=== PATIENT | male | born 1990 | race Caucasian/White ===

== ENCOUNTER 2025-01-26 09:30 | Emergency (ER) | payer SELFPAY ==
[2025-01-26 09:40] VITALS: BP 154/102; PULSE 97; RESP 18; TEMP 36.7; O2SAT 98; BMI 28.3
--- NOTE | 2025-01-26 09:45 | XR_ITS ---
WS: [id number] Portable AP upright chest, 01/26/2025 Clinical Data: dyspnea/cough Comparison: None. Findings: No nodules, masses or effusions are seen. The heart is normal. The pulmonary vascularity is not increased. No pneumonia or pneumothorax is seen. XR/XR chest 1V portable [id number] Impression: Negative chest.
[2025-01-26 10:21] VITALS: PULSE 88; RESP 18; O2SAT 96
[2025-01-26] MEDS: ipratropium-albuterol 3 mL Neb INHALATION (10:24)
[2025-01-26 10:25] VITALS: PULSE 85
[2025-01-26 10:40] LABS: Influenza A NEGATIVE (Negative); Influenza B NEGATIVE (Negative); Respiratory Syncytial Virus Ce NEGATIVE (Negative); SARS-CoV-2 PCR NEGATIVE (Negative)
[2025-01-26 10:59] LABS: Basophils # 0.1 10^3/uL (0.0-0.1); Eosinophils # 0.5 10^3/uL (0.0-0.8); Hematocrit 47.1 % (37-53); Lymphocytes # 2.3 10^3/uL (0.8-4.8); Lymphocytes % 24.7 %; Mean Corpuscular HGB Conc 33.5 g/dL (30-55); Mean Corpuscular Hemoglobin 29.6 pg (27-33); Mean Corpuscular Volume 88.2 fl (82-101); Mean Platelet Volume 9.7 fL (7.4-10.4); Monocytes # 1.2 10^3/uL (0.2-0.9); Monocytes % 12.7 %; Neutrophils # 5.21 10^3/uL (1.8-7.7); Neutrophils % 56.3 %; Nucleated Red Blood Cells % 0 %; Platelet Count 233 10^3/cmm (157-399); Red Blood Count 5.34 10^6/uL (3.85-5.65); White Blood Count 9.26 10^3/uL (3.29-11.43)
[2025-01-26 11:20] LABS: Alanine Aminotransferase 25 U/L (0-41); Albumin Level 3.9 g/dL (3.5-5.2); Alkaline Phosphatase 112 U/L (40-130); Blood Urea Nitrogen 10 mg/dL (6-20); Calcium 8.9 mg/dL (8.5-10.5); Carbon Dioxide 24 mmol/L (22-29); Chloride 103 mmol/L (98-107); Creatinine Clr Calc Pharmacy 140.8893; Globulin 3.2 g/dL (1.3-4.6); Glucose 94 mg/dL (65-115); Osmolality Calculated 283 mOsm/kg (285-295); Slide Review Slide Review Perform; Sodium 137 mmol/L (136-145); Total Bilirubin 0.5 mg/dL (0.15-1.2); Total Protein 7.1 g/dL (6.6-8.7)
[2025-01-26 11:34] LABS: Anion Gap 14.5 (5-19); Aspartate Amino Transferase 28 U/L (0-40); Potassium 4.5 mmol/L (3.5-5.1)
--- NOTE | 2025-01-26 11:35 | ED_ITS ---
HPI - URI/Sore Throat 2 General: Chief Complaint: Upper Respiratory Infection Stated Complaint: coughing up flem Time Seen by Provider: 01/26/25 09:42 History of Present Illness: 34-year-old male presents emergency room was productive cough of yellow sputum for the last 3 days. Subjective fever at home. No vomiting no diarrhea. He has had some myalgias. He has had little streaks of blood in the last the mucus he has been coughing up. Patient is a smoker. Denies any chest pain. Associated symptoms: Deny abdominal pain, chills, chest pain or fever(s) Related Data Previous Rx's ?Medication ?Instructions ?Recorded doxycycline hyclate 100 mg capsule 100 mg PO BID 10 da ys #20 caps 01/26/25 Allergies Allergy/AdvReac Type Severity Reaction Status Date / Time No Known Allergies Allergy Verified 01/26/25 09:42 Review of Systems 2 Const: Denies: fever(s) or chills Card: Denies: chest pain Resp: Denies: dyspnea GI: Denies: abdominal pain : Denies: dysuria, urinary frequency or urinary urgency Musc: Denies: neck pain or back pain Skin/Breast: Denies: rash PFSH ED 2 PFSH: Social History (Updated 01/26/25 @ 11:36 by Handy Campos DO) Smoking and tobacco/nicotine status: current every day tobacco/nicotine user Physical Exam 2 Const: COMMON NORMALS: no acute distress GENERAL APPEARANCE: cooperative and comfortable ORIENTATION/CONSCIOUSNESS: Yes awake, Yes oriented to person, Yes oriented to place and Yes oriented to time HENMT: COMMON NORMALS: normocephalic, atraumatic and hearing grossly normal bilaterally HEAD & SCALP: normocephalic and atraumatic Resp: COMMON NORMALS: normal respiratory effort, No retractions and No use of accessory muscles AUSCULTATION: rhonchi (Right base) and wheezes Cardio: COMMON NORMALS: regular rate, regular rhythm and No murmurs present (Cardio) RATE: regular rate RHYTHM: regular rhythm GI: COMMON NORMALS: Soft to palpation and No hepatosplenomegaly present A USCULTATION: Yes normoactive bowel sounds PALPATION: Yes Soft to palpation, No Tenderness to palpation present (GI), No Guarding due to palpation present (GI) and Yes No hepatosplenomegaly present Extremity: COMMON NORMALS: normal to inspection, capillary refill normal, no clubbing, cyanosis or edema, no calf tenderness and no pedal edema Neuro: SENSORIUM/ORIENTATION: Yes oriented to person, Yes oriented to place and Yes oriented to time Skin: COMMON NORMALS: no rashes or lesions noted GENERAL SKIN EXAM: no rashes or lesions noted Course 2 Vital Signs: Vital signs: Vital Signs Temperature 98.1 F 01/26/25 09:40 Pulse Rate 80 01/26/25 11:50 Respiratory Rate 18 01/26/25 10:21 Blood Pressure 130/77 01/26/25 11:50 Pulse Oximetry 99 01/26/25 11:50 Oxygen Delivery Me thod Room Air 01/26/25 10:21 MDM - URI/Sore Throat Medical Decision Making Chest x-ray looks clear however on auscultation he has very coarse breath sounds at the base of the right lung clinically with his productive cough suspect he does have pneumonia we will start him on doxycycline he has albuterol at home. Return if he has further problems. Reviewed findings with him flu COVID and RSV were negative. Medical Records I reviewed the patient's medical records. Lab Data I reviewed the patient's lab results. 01/26/25 10:50 01/26/25 10:50 Radiology Impressions Chest X-Ray 01/26/25 09:45 Impression: Negative chest. Laboratory Results WBC 9.26 10^3/uL (3.29-11.43) 01/26/25 10:50 RBC 5.34 10^6/uL (3.85-5.65) 01/26/25 10:50 Hgb 15.80 g/dL (11.27-16.99) 01/26/25 10:50 Hct 47.1 % (37-53) 01/26/25 10:50 MCV 88.2 fl (82-101) 01/26/25 10:50 MCH 29.6 pg (27-33) 01/26/25 10:50 MCHC 33.5 g/dL (30-55) 01/26/25 10:50 RDW 13.0 % (12.1-15.1) 01/26/25 10:50 Plt Count 233 10^3/cmm (157-399) 01/26/25 10:50 MPV 9.7 fL (7.4-10.4) 01/26/25 10:50 Neut % (Auto) 56.3 % 01/26/25 10:50 Lymph % (Auto) 24.7 % 01/26/25 10:50 [place] % (Auto) 12.7 % 01/26/25 10:50 Eos % (Auto) 5.0 % 01/26/25 10:50 Baso % (Auto) 1.0 % 01/26/25 10:50 Neut # (Auto) 5.21 10^3/uL (1.8-7.7) 01/26/25 10:50 Lymph # (Auto) 2.3 10^3/uL (0.8-4.8) 01/26/25 10:50 [place] # (Auto) 1.2 10^3/uL (0.2-0.9) H 01/26/25 10:50 Eos # (Auto) 0.5 10^3/uL (0.0-0.8) 01/26/25 10:50 Baso # (Auto) 0.1 10^3/uL (0.0-0.1) 01/26/25 10:50 Nucleated RBC % (auto) 0 % 01/26/25 10:50 Nucleated RBCs # 0.0 /100WBC 01/26/25 10:50 Sodium 137 mmol/L (136-145) 01/26/25 10:50 Potassium 4.5 mmol/L (3.5-5.1) 01/26/25 10:50 Chloride 103 mmol/L (98-107) 01/26/25 10:50 Carbon Dioxide 24 mmol/L (22-29) 01/26/25 10:50 Anion Gap 14.5 (5-19) 01/26/25 10:50 BUN 10 mg/dL (6-20) 01/26/25 10:50 Creatinine 0.9 mg/dL (0.7-1.2) 01/26/25 10:50 GFR Calculation 96.0 mL/min (90-130) 01/26/25 10:50 Glucose 94 mg/dL (65-115) 01/26/25 10:50 Calculated Osmolality 283 mOsm/kg (285-295) L 01/26/25 10:50 Calcium 8.9 mg/dL (8.5-10.5) 01/26/25 10:50 Total Bilirubin 0.5 mg/dL (0.15-1.2) 01/26/25 10:50 AST 28 U/L (0-40) 01/26/25 10:50 ALT 25 U/L (0-41) 01/26/25 10:50 Alkaline Phosphatase 112 U/L (40-130) 01/26/25 10:50 Total Protein 7.1 g/dL (6.6-8.7) 01/26/25 10:50 Albumin 3.9 g/dL (3.5-5.2) 01/26/25 10:50 Globulin 3.2 g/dL (1.3-4.6) 01/26/25 10:50 Influenza A (PCR) Negative (Negative) 01/26/25 09:42 Influenza Type B (PCR) Negative (Negative) 01/26/25 09:42 RSV (PCR) Negative (Negative) 01/26/25 09:42 SARS-CoV-2 (PCR) Negative (Negative) 01/26/25 09:42 All radiology interpretation(s) finalized by discharge Discharge Plan Discharge Patient Disposition: Home Clinical Impression: Pneumonia Condition: Stable Prescriptions: New doxycycline hyclate 100 mg capsule 100 mg PO BID 10 Days Qty: 20 0RF Discharge Orders: Discharge ED (Routine); Ordered 01/26/25 Ordered By: Handy Campos Patient Instructions: Opioid Safety, Pain Management Activity Restrictions/Additional Instructions: Thank you for choosing [facility] for your healthcare needs today. It is very important that you follow up as instructed or that you return to the Emergency Department should you have concerns or if your condition changes or worsens in any way. You were seen in the emergency room for cough congestion and fever. Laboratory test normal chest x-ray did not show any acute infiltrates however on your exam you do have very coarse breath sounds at the right base of your lung. Will start you on a doxycycline 100 mg twice a day for 10 days. If not improving recheck Print Language: Yemeni Coding Level of Care Code ED Pharmaceutical Process Engineer for Luis Stinson
[2025-01-26 11:40] VITALS: BP 130/77; PULSE 93; O2SAT 98
--- NOTE | 2025-01-26 11:43 | ECG_ITS ---
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 Measurements Intervals [place] Rate: 83 P: 69 [place]: 147 QRS: 43 QRSD: 89 T: 55 QT: 339 QTc: 399 Interpretive Statements SINUS RHYTHM No previous ECG available for comparison Electronically Signed On 01-28-2025 19:12:01 CDT by Fernando King M.D. [id number] [id number]
[2025-01-26 11:50] VITALS: BP 130/77; PULSE 80; O2SAT 99
== END 2025-01-26 12:00 | disposition home or self-care (01) ==
PROVIDERS: Emergency Provider Family Medicine
DX: J18.9 Pneumonia, unspecified organism (principal); Z11.52 Encounter for screening for COVID-19; Z72.0 Tobacco use
CPT/HCPCS: 71045; 80053; 85025; 87637; 93005; 94640; 99285

== ENCOUNTER 2025-02-17 01:23 | Emergency (ER) | payer SELFPAY ==
[2025-02-17 01:24] VITALS: BP 162/122; PULSE 73; RESP 18; TEMP 37; O2SAT 96; BMI 29.7
--- NOTE | 2025-02-17 01:38 | ECG_ITS ---
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 Measurements Intervals [place] Rate: 87 P: 86 [place]: 142 QRS: 56 QRSD: 96 T: 87 QT: 329 QTc: 397 Interpretive Statements SINUS RHYTHM Compared to ECG 01/26/2025 11:43:45 No significant changes Electronically Signed On 02-17-2025 17:34:28 CDT by Fernando King M.D. [id number]
--- NOTE | 2025-02-17 01:38 | XRR_ITS ---
PROCEDURE INFORMATION: Exam: XR Chest Exam date and time: 02/17/2025 1:44 AM Age: 34 years old Clinical indication: Shortness of breath TECHNIQUE: Imaging protocol: Radiologic exam of the chest. Views: 1 view. COMPARISON: CR XR chest 1V portable [id number] 01/26/2025 9:58 AM FINDINGS: Lungs: Unremarkable. No consolidation. Pleural spaces: Unremarkable. No pleural effusion. No pneumothorax. Heart/Mediastinum: Unremarkable. No cardiomegaly. Bones/joints: Unremarkable. XR/XR chest 1V portable [id number] IMPRESSION: No acute findings.
--- NOTE | 2025-02-17 01:42 | W.ED.CHESTPA ---
HPI - Chest Pain General: Chief Complaint: Chest Pain Stated Complaint: cp, light headed Time Seen by Provider: 02/17/25 01:37 History of Present Illness: 34-year-old man with a history of hypertension who presents emergency room with hypertension. He says has been having some chest discomfort and some dizziness. He says he feels fine right now. [facility]. He says he is supposed to be taking blood pressure medication. Related Data Previous Rx's ?Medication ?Instructions ?Recorded lisinopril 20 mg tablet 20 mg PO DAILY #30 tabs 02/17/25 Allergies Allergy/AdvReac Type Severity Reaction Status Date / Time No Known Allergies Allergy Verified 02/17/25 01:28 Review of Systems Narrative: Constitutional symptoms: Negative except as documented in HPI. Skin symptoms: Negative except as documented in HPI. Eye symptoms: Negative except as documented in HPI. ENMT symptoms: Negative except as documented in HPI. Respiratory symptoms: Negative except as documented in HPI. Cardiovascular symptoms: Negative except as documented in HPI. Gastrointestinal symptoms: Negative except as documented in HPI. Genitourinary symptoms: Negative except as documented in HPI. Musculoskeletal symptoms: Negative except as documented in HPI. Neurologic symptoms: Negative except as documented in HPI. Psychiatric symptoms: Negative except as documented in HPI. Endocrine symptoms: Negative except as documented in HPI. PFSH ED PFSH: Social History (Updated 01/26/25 @ 11:36 by Handy Campos DO) Smoking and tobacco/nicotine status: current every day tobacco/nicotine user Physical Exam Narrative: EXAM NARRATIVE: General: Alert, no acute distress. Skin: Warm, dry. Head: Normocephalic, atraumatic. Neck: Supple, trachea midline. Eye: Extraocular movements are intact. Ears, nose, mouth and throat: mucosa moist. Cardiovascular: Regular, Normal peripheral perfusion. Respiratory: Lungs are clear to auscultation, respirations are non-labored, breath sounds are equal, Symmetrical chest wall expansion. Gastrointestinal: Soft, Nontender, Non distended Musculoskeletal: Normal ROM, no deformity. Neurological: Alert and oriented, No focal neurological deficit observed. Psychiatric: Cooperative, appropriate mood & affect. Course Vital Signs: Vital signs: Vital Signs Temperature 98.6 F 02/17/25 01:24 Pulse Rate 103 H 02/17/25 03:48 Respiratory Rate 18 02/17/25 01:24 Blood Pressure 159/95 02/17/25 03:02 Pulse Oximetry 96 02/17/25 03:48 Oxygen Delivery Me thod Room Air 02/17/25 03:48 MDM - Chest Pain Medical Decision Making Differential diagnosis for patient with chest pain includes but is not limited to and based on the above HPI, review of systems and physical exam: Pneumonia. unstable angina. angina. Acute coronary syndrome / [place]. Pulmonary embolism. Costochondritis / musculoskeletal. Pleurisy. Pericarditis. Esophageal spasm. Pancreatis. Cholecystitis. Orders placed to evaluate differential diagnosis based on the above differential, HPI and physical exam EKG: Time 1:34 AM. Rate 87. Normal sinus rhythm, No ST-T changes, no ectopy, normal NH & QRS intervals, This was reviewed and interpreted by myself the ER physician at 1:40 AM Chest x-ray: No acute process. No infiltrate. No pneumothorax. This was reviewed and interpreted by myself the emergency room physician. I also reviewed the radiology report. Lab Review: Laboratory results were reviewed and interpreted by myself the emergency room physician. No leukocytosis. No anemia. No renal failure. Troponin is negative. I reviewed the patient's medical record. Reexamination: Patient has remained chest pain-free. Assessment and plan: Hypertension Noncardiac chest pain ? Lisinopril and clonidine in the emergency room. - Discharged home - Discussed plan with patient. Answered any questions. - Evaluation and treatment of this problem were appropriate in the emergency setting. Lab Data 02/17/25 03:19 02/17/25 03:19 Radiology Impressions Chest X-Ray 02/17/25 01:38 IMPRESSION: No acute findings. Laboratory Results WBC 11.75 10^3/uL (3.29-11.43) H 02/17/25 03:19 Corrected WBC Cancelled 02/17/25 02:51 RBC 5.59 10^6/uL (3.85-5.65) 02/17/25 03:19 Hgb 16.20 g/dL (11.27-16.99) 02/17/25 03:19 Hct 49.9 % (37-53) 02/17/25 03:19 MCV 89.3 fl (82-101) 02/17/25 03:19 MCH 29.0 pg (27-33) 02/17/25 03:19 MCHC 32.5 g/dL (30-55) 02/17/25 03:19 RDW 12.2 % (12.1-15.1) 02/17/25 03:19 Plt Count 310 10^3/cmm (157-399) 02/17/25 03:19 MPV 9.5 fL (7.4-10.4) 02/17/25 03:19 Gran % Cancelled 02/17/25 02:51 Neut % (Auto) 66.7 % 02/17/25 03:19 Lymph % (Auto) 21.5 % 02/17/25 03:19 [place] % (Auto) 8.2 % 02/17/25 03:19 Eos % (Auto) 2.3 % 02/17/25 03:19 Baso % (Auto) 1.0 % 02/17/25 03:19 Neut # (Auto) 7.83 10^3/uL (1.8-7.7) H 02/17/25 03:19 Lymph # (Auto) 2.5 10^3/uL (0.8-4.8) 02/17/25 03:19 [place] # (Auto) 1.0 10^3/uL (0.2-0.9) H 02/17/25 03:19 Eos # (Auto) 0.3 10^3/uL (0.0-0.8) 02/17/25 03:19 Baso # (Auto) 0.1 10^3/uL (0.0-0.1) 02/17/25 03:19 Absolute Gran (auto) Cancelled 02/17/25 02:51 Nucleated RBC % (auto) 0 % 02/17/25 03:19 Nucleated RBCs # 0.0 /100WBC 02/17/25 03:19 Sodium 139 mmol/L (136-145) 02/17/25 03:19 Potassium Cancelled 02/17/25 02:51 Chloride 103 mmol/L (98-107) 02/17/25 03:19 Carbon Dioxide 24 mmol/L (22-29) 02/17/25 03:19 Anion Gap Cancelled 02/17/25 02:51 BUN 10 mg/dL (6-20) 02/17/25 03:19 Creatinine 1.0 mg/dL (0.7-1.2) 02/17/25 03:19 GFR Calculation Cancelled 02/17/25 02:51 Glucose 85 mg/dL (65-115) 02/17/25 03:19 Calculated Osmolality 286 mOsm/kg (285-295) 02/17/25 03:19 Calcium 9.2 mg/dL (8.5-10.5) 02/17/25 03:19 Total Bilirubin 0.2 mg/dL (0.15-1.2) 02/17/25 03:19 AST 17 U/L (0-40) 02/17/25 03:19 ALT 20 U/L (0-41) 02/17/25 03:19 Alkaline Phosphatase 84 U/L (40-130) 02/17/25 03:19 Troponin T Baseline < 6 ng/L (0-15) 02/17/25 03:19 NT-Pro-B Natriuret Pep < 36 pg/mL (0-125) 02/17/25 03:19 Total Protein 6.9 g/dL (6.6-8.7) 02/17/25 03:19 Albumin 4.4 g/dL (3.5-5.2) 02/17/25 03:19 Globulin 2.5 g/dL (1.3-4.6) 02/17/25 03:19 All radiology interpretation(s) finalized by discharge Discharge Plan Discharge Patient Disposition: Home Clinical Impression: Hypertension, Non-cardiac chest pain Condition: Stable Prescriptions: New lisinopril 20 mg tablet 20 mg PO DAILY Qty: 30 1RF Discharge Orders: Discharge ED (Routine); Ordered 02/17/25 Ordered By: Jackelin Guido Discharge Diet: Usual diet Discharge Activity: Increase activity as tolerated Patient Instructions: Hypertension (ED), Noncardiac Chest Pain (ED), Opioid Safety, Pain Management Activity Restrictions/Additional Instructions: Thank you for choosing [facility] for your healthcare needs today. Please realize this is an emergency room and that we are providing you with a medical screening exam and this may not be complete and all inclusive of all the testing and or work up that you may need to determine your ailment or severity of your illness. You have been screened and evaluated and felt safe for discharge. Health conditions do change or evolve sometimes and as such it is important that you follow up with your Primary Doctor to be re checked, 3-5 days is a general good time frame for follow up. You are always welcome to return to the ED for re assessment if your symptoms are worsening or you have new concerns Print Language: Wolof Coding Level of Care Code ED Salesperson [employer]ans for Luis Stinson
[2025-02-17 02:03] VITALS: BP 162/122
[2025-02-17] MEDS: lisinopril 20 mg Tablet PO (02:03)
[2025-02-17] MEDS: cloNIDine 0.1 mg Tablet PO (02:03)
[2025-02-17 02:06] VITALS: BP 197/118; PULSE 89; O2SAT 99
[2025-02-17 03:02] VITALS: BP 159/95; PULSE 91; O2SAT 99
--- NOTE | 2025-02-17 03:22 | ECG_ITS ---
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
[2025-02-17 03:24] LABS: Basophils # 0.1 10^3/uL (0.0-0.1); Eosinophils # 0.3 10^3/uL (0.0-0.8); Eosinophils % 2.3 %; Hematocrit 49.9 % (37-53); Lymphocytes # 2.5 10^3/uL (0.8-4.8); Lymphocytes % 21.5 %; Mean Corpuscular HGB Conc 32.5 g/dL (30-55); Mean Corpuscular Volume 89.3 fl (82-101); Mean Platelet Volume 9.5 fL (7.4-10.4); Monocytes % 8.2 %; Neutrophils # 7.83 10^3/uL (1.8-7.7); Neutrophils % 66.7 %; Nucleated Red Blood Cells % 0 %; Platelet Count 310 10^3/cmm (157-399); Red Blood Count 5.59 10^6/uL (3.85-5.65); Red Cell Distribution Width 12.2 % (12.1-15.1); White Blood Count 11.75 10^3/uL (3.29-11.43)
[2025-02-17 03:42] LABS: Troponin(5th) Baseline < 6 ng/L (0-15)
[2025-02-17 03:48] VITALS: PULSE 103; O2SAT 96
[2025-02-17 04:04] LABS: Alanine Aminotransferase 20 U/L (0-41); Albumin Level 4.4 g/dL (3.5-5.2); Alkaline Phosphatase 84 U/L (40-130); Aspartate Amino Transferase 17 U/L (0-40); Blood Urea Nitrogen 10 mg/dL (6-20); Calcium 9.2 mg/dL (8.5-10.5); Carbon Dioxide 24 mmol/L (22-29); Chloride 103 mmol/L (98-107); Creatinine Clr Calc Pharmacy 129.4463; Globulin 2.5 g/dL (1.3-4.6); Glucose 85 mg/dL (65-115); NT Pro B Type Natriuretic Pept < 36 pg/mL (0-125); Osmolality Calculated 286 mOsm/kg (285-295); Sodium 139 mmol/L (136-145); Total Bilirubin 0.2 mg/dL (0.15-1.2); Total Protein 6.9 g/dL (6.6-8.7)
[2025-02-17 04:07] LABS: Anion Gap 16.5 (5-19); Potassium 4.5 mmol/L (3.5-5.1)
[2025-02-17 04:16] VITALS: BP 135/75; PULSE 91; O2SAT 97
== END 2025-02-17 04:10 | disposition home or self-care (01) ==
PROVIDERS: Emergency Provider Emergency Medicine
DX: I10 Essential (primary) hypertension (principal); R07.89 Other chest pain; Z72.0 Tobacco use
CPT/HCPCS: 36415; 71045; 80053; 83880; 84484; 85025; 93005; 99285; J9999

== ENCOUNTER 2025-05-10 08:16 | Outpatient (CLI) | payer MEDICAID, SELFPAY ==
--- NOTE | 2025-05-10 06:30 | US_ITS ---
WS: [id number] Complete ABDOMINAL ULTRASOUND HISTORY: R11.0 - Nausea COMPARISON: None available. Liver: 14.0 cm in length. Normal size liver and echogenicity. No bile duct dilatation or mass. Portal Vein: Normal hepatopetal flow with monophasic waveform. Gallbladder: Normally distended gallbladder with no stones or wall thickening. CBD: 0.2 cm Pancreas: Limited visualization of the pancreas. Right kidney: 10.2 cm x 4.1 x 4.4 cm. Cortex:1.2 cm. Normal size and echogenicity. No hydronephrosis or mass. Left kidney: 10.6 cm x 5.0 cm x 4.8 cm. Cortex: 1.1 cm. Normal size kidney. Central parapelvic cyst measures 1.1 x 1.2 x 1.2 cm. No renal obstruction. Spleen: 10.2 cm. Normal size and echogenicity. Aorta and IVC: Unremarkable abdominal aorta and IVC. US/US abdomen complete* [id number] Impression: 1. Normal gallbladder. 2. Normal liver. 3. Nonvisualization of the pancreas. 4. No renal obstruction. 5. Parapelvic cyst LEFT kidney, 1.2 cm.
== END 2025-05-10 08:17 | disposition home or self-care (01) ==
PROVIDERS: PCP Clinical Nurse Specialist Adult Health; Visit Provider Clinical Nurse Specialist Adult Health
DX: N28.1 Cyst of kidney, acquired (principal); R11.0 Nausea; K21.9 Gastro-esophageal reflux disease without esophagitis; R10.9 Unspecified abdominal pain
CPT/HCPCS: 76700

== ENCOUNTER 2025-09-07 12:13 | Emergency (ER) | payer SELFPAY ==
[2025-09-07 12:38] VITALS: BP 135/80; PULSE 74; TEMP 36.7; O2SAT 99
--- NOTE | 2025-09-07 12:42 | ECG_ITS ---
[facility] Test Date: 2025-09-07 Pat Name: Frandy Cisneros Department: Room: Gender: Male Clinical Physician Assistant: : 1990 Requested By: Lois Paige Order Number: [id number] Queenie MD: Jolynn White M.D. Measurements Intervals [place] Rate: 74 P: 58 [place]: 152 QRS: 34 QRSD: 91 T: 61 QT: 346 QTc: 385 Interpretive Statements SINUS RHYTHM INTERPRETATION BASED ON A DEFAULT AGE OF 40 YEARS Compared to ECG 02/17/2025 03:22:38 No significant changes Electronically Signed On 09-07-2025 16:52:39 CDT by Jolynn White M.D. [id number]
--- NOTE | 2025-09-07 13:36 | W.ED.GENADLT ---
HPI - General Adult General: Chief complaint: General Medical Stated complaint: BP high Time Seen by Provider: 09/07/25 13:28 Source: patient and EMS Mode of arrival: EMS Limitations: no limitations History of Present Illness: 35-year-old male is here from [facility] he states that he does have a history of high blood pressure states he has been under a lot of stress and got anxious today and his blood pressure had spiked [facility] and called EMS. He states he had no chest pain no shortness of breath his blood pressure is normalized he states he feels back to his baseline has no complaints currently. Related Data Previous Rx's ?Medication ?Instructions ?Recorded melatonin 3 mg capsule 3 mg PO .every 9PM #30 caps 03/03/25 Allergies Allergy/AdvReac Type Severity Reaction Status Date / Time No Known Allergies Allergy Verified 09/07/25 12:46 [facility] ED PFSH: Medical History Abdominal pain GERD (gastroesophageal reflux disease) History of drug use Essential hypertension Insomnia Surgical History No pertinent past surgical history Social History Smoking and tobacco/nicotine status: current every day tobacco/nicotine user Quit status (tobacco/nicotine): has quit using Former quit date comment: 2024 Alcohol intake: former Substance/Drug Use: former Household members: significant other Physical Exam Const: COMMON NORMALS: no acute distress, patient oriented x3 and healthy appearing HENMT: COMMON NORMALS: normocephalic and atraumatic HEAD & SCALP: normocephalic and atraumatic Eye: COMMON NORMALS: Equal, round and reactive pupils present and EOMs intact bilaterally PUPIL: Yes Equal, round and reactive pupils present Neck/C-Spine: COMMON NORMALS: full ROM and supple Chest: COMMONS NORMALS: normal inspection of the chest and normal palpation of entire chest wall Resp: COMMON NORMALS: normal respiratory effort, No retractions, No use of accessory muscles and clear to auscultation bilaterally AUSCULTATION: clear to auscultation bilaterally Cardio: COMMON NORMALS: regular rate, regular rhythm and No murmurs present (Cardio) RATE: regular rate RHYTHM: regular rhythm GI: COMMON NORMALS: Normal to inspection, nondistended, normoactive bowel sounds present, Soft to palpation, non-tender and no masses PALPATION: Yes Soft to palpation Extremity: COMMON NORMALS: normal to inspection and full ROM Neuro: COMMON NORMALS: patient oriented x3, moves all extremities and no focal motor deficits Psych: COMMON NORMALS: mental status grossly normal, Normal thought process present and cooperative THOUGHT PROCESS: Normal thought process present Skin: COMMON NORMALS: no rashes or lesions noted and no wounds GENERAL SKIN EXAM: no rashes or lesions noted Course Vital Signs: Vital signs: Vital Signs Temperature 98.1 F 09/07/25 12:38 Pulse Rate 74 09/07/25 12:38 Blood Pressure 135/80 09/07/25 12:38 Pulse Oximetry 99 09/07/25 12:38 Oxygen Delivery Me thod Room Air 09/07/25 12:38 MDM - General Adult Medical Decision Making Patient presents here with concern of hypertension he has been normotensive here and he has no complaints here he is had no chest pain no headache EKG here showed normal sinus rhythm heart rate [address] elevation QRS 91 QTc 374. Blood pressure here currently 135/80 he is stable for discharge back to [facility] [place]. Medical Records I reviewed the patient's medical records. Lab Data I reviewed the patient's lab results. No radiology studies performed this visit EKG Data EKG 1: I personally reviewed and interpreted this EKG as follows: EKG interpretation date: 09/07/25 EKG interpretation time: 12:42 Interpretation: nsr hr [address] elevation qrs 91 qtc 374 Discharge Plan Discharge Patient Disposition: Home Clinical Impression: Hypertension Condition: Stable Prescriptions: No Action melatonin 3 mg capsule 3 mg PO .every 9PM Qty: 30 0RF Discharge Orders: Discharge ED (Routine); Ordered 09/07/25 Ordered By: Lois Paige Referrals: Gil Albrecht NP [Primary Care Provider, Family Practice] - 4-7 days Discharge Diet: Advance as tolerated Discharge Activity: Resume usual activity Patient Instructions: Hypertension (ED) Print Language: Wolof Coding Level of Care Code ED International Logistics Manager for Chg Milad
--- NOTE | 2025-09-07 13:40 | PC.PHAR ---
Pt has been at [facility] for 2 days. Med list not confirmed prior to discharge
== END 2025-09-07 14:07 | disposition home or self-care (01) ==
PROVIDERS: Emergency Provider Emergency Medicine; PCP Clinical Nurse Specialist Adult Health
DX: I10 Essential (primary) hypertension (principal); Z72.0 Tobacco use
CPT/HCPCS: 93005; 99283

== ENCOUNTER 2025-11-13 21:47 | Emergency (ER) | payer SELFPAY ==
--- NOTE | 2025-11-13 21:55 | ECG_ITS ---
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
[2025-11-13 21:59] VITALS: BP 178/122; PULSE 108; RESP 18; TEMP 36.8; O2SAT 97; BMI 33.0
--- NOTE | 2025-11-13 23:10 | XRR_ITS ---
PROCEDURE INFORMATION: Exam: XR Chest Exam date and time: 11/14/2025 12:30 AM Age: 35 years old Clinical indication: Pain; Chest pressure; Additional info: Chest pain TECHNIQUE: Imaging protocol: Radiologic exam of the chest. Views: 1 view. COMPARISON: CR XR chest 1V portable [id number] 02/17/2025 1:44 AM FINDINGS: Lungs: Pulmonary hypoinflation without consolidation. Pleural spaces: No substantial pleural effusion or pneumothorax. Heart/Mediastinum: Unremarkable. No cardiomegaly. Bones/joints: Unremarkable. XR/XR chest 1V portable [id number] IMPRESSION: Pulmonary hypoinflation without acute findings.
[2025-11-14] VITALS (17 sets, daily range): BP systolic 134–169; BP diastolic 101–117; PULSE 79–108; RESP 14–23; O2SAT 96–100
--- NOTE | 2025-11-14 00:10 | ECG_ITS ---
[facility] Test Date: 2025-11-14 Pat Name: Frandy Cisneros Department: Room: Gender: Male [employer]: : 1990 Requested By: Kylah Self Order Number: [id number] Queenie MD: VICKIE WALTERS Measurements Intervals [place] Rate: 91 P: 71 SC: 154 QRS: 20 QRSD: 110 T: 47 QT: 358 QTc: 443 Interpretive Statements SINUS RHYTHM Compared to ECG 11/13/2025 21:55:36 Sinus tachycardia no longer present Electronically Signed On 11-17-2025 18:55:28 SHAKER REPAIRER by VICKIE WALTERS [email or web address]villeS[id number]
[2025-11-14 00:37] LABS: Hematocrit 51.2 % (37-53); Hemoglobin 16.40 g/dL (11.27-16.99); Mean Corpuscular HGB Conc 32.0 g/dL (30-55); Mean Corpuscular Hemoglobin 29.1 pg (27-33); Mean Corpuscular Volume 90.8 fl (82-101); Nucleated Red Blood Cells % 0 %; Platelet Count 314 10^3/cmm (157-399); Red Blood Count 5.64 10^6/uL (3.85-5.65); Troponin(5th) Baseline 8 ng/L (0-15); White Blood Count 8.86 10^3/uL (3.29-11.43)
[2025-11-14 00:44] LABS: Alanine Aminotransferase 88 U/L (0-41); Albumin Level 4.7 g/dL (3.5-5.2); Alkaline Phosphatase 116 U/L (40-130); Anion Gap 17.9 (5-19); Aspartate Amino Transferase 41 U/L (0-40); Blood Urea Nitrogen 14 mg/dL (6-20); Calcium 9.9 mg/dL (8.5-10.5); Carbon Dioxide 24 mmol/L (22-29); Chloride 102 mmol/L (98-107); Globulin 2.6 g/dL (1.3-4.6); Glucose 107 mg/dL (65-115); Osmolality Calculated 289 mOsm/kg (285-295); Potassium 4.9 mmol/L (3.5-5.1); Sodium 139 mmol/L (136-145); Total Protein 7.3 g/dL (6.6-8.7)
[2025-11-14 02:27] LABS: Glucose Urine UA Negative (Normal); Nitrate Urine Negative (Negative); Specific Gravity, Urine 1.016 (1.005-1.030)
[2025-11-14 02:29] LABS: Add Urine Microscopic? YES
[2025-11-14 03:02] LABS: Lipase 34 U/L (13-60); NT Pro B Type Natriuretic Pept < 36 pg/mL (0-125)
--- NOTE | 2025-11-14 03:05 | W.ED.CHESTPA ---
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 Patient states that any stress triggers high blood pressure and chest pain. Patient states that today he awoke, felt warm sensation in his chest, measured his blood pressure which he noted to be elevated and then started experiencing chest pain which is dull, squeezing and pressure-like. Patient states he was diaphoretic. Chest pain is not clearly exertional and does not radiate. He does not have any cardiac history. He is supposed to be taking amlodipine for high blood pressure but states that he has discontinued it, states that it causes chest pain. Patient states that his blood pressure has been running 150-180 systolic at home. Patient denies double vision, loss of vision, focal numbness, focal weakness, difficulty with speech, swallowing, coordination or ambulation. Related Data Previous Rx's ?Medication ?Instructions ?Recorded melatonin 3 mg capsule 3 mg PO .every 9PM #30 caps 03/03/25 losartan 50 mg-hydrochlorothiazide 1 tab PO DAILY #30 tabs 11/14/25 12.5 mg tablet Allergies Allergy/AdvReac Type Severity Reaction Status Date / Time No Known Allergies Allergy Verified 09/07/25 12:46 [facility] ED PFS: Medical History (Updated 11/14/25 @ 04:30 by Deirdre Sargent MD) Abdominal pain GERD (gastroesophageal reflux disease) History of drug use Essential hypertension Insomnia Surgical History No pertinent past surgical history Social History Smoking and tobacco/nicotine status: current every day tobacco/nicotine user Quit status (tobacco/nicotine): has quit using Former quit date comment: 2024 Alcohol intake: former Substance/Drug Use: former Household members: significant other Physical Exam Narrative: EXAM NARRATIVE: Vital signs were reviewed. Patient is alert and oriented. Patient is breathing comfortably, no increased WOB or accessory muscle use. SpO2 is above 95% on RA. Patient has clear lungs b/l, no rhonchi, wheezing or crackles. No hypotension. Mild tachycardia. Abdomen is soft, nondistended and nontender. Patient is moving all extremities, no deformity or gross injury. No lower extremity edema or asymmetry. Patient appears anxious. Course Vital Signs: Vital signs: Vital Signs Temperature 98.3 F 11/13/25 21:59 Pulse Rate 97 11/14/25 03:45 Respiratory Rate 19 H 11/14/25 03:15 Blood Pressure 156/111 11/14/25 03:45 Pulse Oximetry 97 11/14/25 03:45 MDM - Chest Pain Medical Decision Making 35yo M w/cc of HTN, chest pressure worsened by stress, anxiety, nonexertional, nonradiating. He has recently discontinued drug use. Differential diagnosis includes, but is not limited to, ACS, myocarditis, pericarditis, endocarditis, pneumonia, viral upper respiratory infection, PE, GERD, asymptomatic hypertension, hypertensive emergency, panic attack, anxiety other. On initial exam, patient is hemodynamically stable nontoxic appearing. EKG was personally reviewed and interpreted and shows no STEMI. Patient was evaluate CBC, CMP, troponin, D-dimer, BNP, EKG, chest x-ray, UA and urine drug screen. Patient has a normal white blood cell count, no electrolyte abnormalities, only mild elevation in AST and ALT but I do not feel that this is clinically significant, normal lipase, no urinary tract infection, no blood in urine, drug screen is negative. Patient has a normal troponin, negative delta, has a normal BNP and no evidence of heart failure, patient has a normal D-dimer which significantly lowers my concern for DVT. 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 He states that Wellbutrin has worked for his depression but he has significant anxiety he deals with. I feel that this is a component that contributes to his chest pain. I will start him on losartan for blood pressure control, recommend outpatient cardiology workup if patient continues to have chest pain. At this time, I feel that he is appropriate for outpatient management, he has a heart score of 2. Patient was counseled on supportive care at home, given return precautions and discharged in stable condition with recommendation for outpatient follow-up with primary care nurse or doctor. Lab Data 12/28/25 00:14 11/13/25 00:14 Radiology Impressions Chest X-Ray 11/13/25 23:10 IMPRESSION: Pulmonary hypoinflation without acute findings. Laboratory Results WBC 8.86 10^3/uL (3.29-11.43) 11/13/25 00:14 RBC 5.64 10^6/uL (3.85-5.65) 11/13/25 00:14 Hgb 16.40 g/dL (11.27-16.99) 11/13/25 00:14 Hct 51.2 % (37-53) 11/13/25 00:14 MCV 90.8 fl (82-101) 11/13/25 00:14 MCH 29.1 pg (27-33) 11/13/25 00:14 MCHC 32.0 g/dL (30-55) 11/13/25 00:14 RDW 12.4 % (12.1-15.1) 11/13/25 00:14 Plt Count 314 10^3/cmm (157-399) 11/13/25 00:14 MPV 9.1 fL (7.4-10.4) 11/13/25 00:14 Neut % (Auto) 72.5 % 11/13/25 00:14 Lymph % (Auto) 16.7 % 11/13/25 00:14 [place] % (Auto) 7.9 % 11/13/25 00:14 Eos % (Auto) 1.4 % 11/13/25 00:14 Baso % (Auto) 1.0 % 11/13/25 00:14 Neut # (Auto) 6.43 10^3/uL (1.8-7.7) 11/13/25 00:14 Lymph # (Auto) 1.5 10^3/uL (0.8-4.8) 11/13/25 00:14 [place] # (Auto) 0.7 10^3/uL (0.2-0.9) 11/13/25 00:14 Eos # (Auto) 0.1 10^3/uL (0.0-0.8) 11/13/25 00:14 Baso # (Auto) 0.1 10^3/uL (0.0-0.1) 11/13/25 00:14 Nucleated RBC % (auto) 0 % 11/13/25 00:14 Nucleated RBCs # 0.0 /100WBC 11/13/25 00:14 D-Dimer <= 0.27 ug/mLFEU (0-0.59) 11/14/25 00:14 Sodium 139 mmol/L (136-145) 11/13/25 00:14 Potassium 4.9 mmol/L (3.5-5.1) 11/13/25 00:14 Chloride 102 mmol/L (98-107) 11/13/25 00:14 Carbon Dioxide 24 mmol/L (22-29) 11/13/25 00:14 Anion Gap 17.9 (5-19) 11/13/25 00:14 BUN 14 mg/dL (6-20) 11/13/25 00:14 Creatinine 1.0 mg/dL (0.7-1.2) 11/13/25 00:14 GFR Calculation 84.5 mL/min (90-130) L 11/13/25 00:14 Glucose 107 mg/dL (65-115) 11/13/25 00:14 Calculated Osmolality 289 mOsm/kg (285-295) 11/13/25 00:14 Calcium 9.9 mg/dL (8.5-10.5) 11/13/25 00:14 Total Bilirubin 0.2 mg/dL (0.15-1.2) 11/13/25 00:14 AST 41 U/L (0-40) H 11/13/25 00:14 ALT 88 U/L (0-41) H 11/13/25 00:14 Alkaline Phosphatase 116 U/L (40-130) 11/13/25 00:14 Troponin T Baseline 8 ng/L (0-15) 11/13/25 00:14 Troponin T 60 Minute 8.55 ng/L (0-15) 11/14/25 01:04 Delta Troponin T 0.55 ABS# (0-10) 11/14/25 01:04 NT-Pro-B Natriuret Pep < 36 pg/mL (0-125) 11/14/25 00:14 Total Protein 7.3 g/dL (6.6-8.7) 11/13/25 00:14 Albumin 4.7 g/dL (3.5-5.2) 11/13/25 00:14 Globulin 2.6 g/dL (1.3-4.6) 11/13/25 00:14 Lipase 34 U/L (13-60) 11/14/25 00:14 Urine Color Yellow (Yellow) 11/14/25 02:18 Urine Appearance Clear (CLEAR) 11/14/25 02:18 Urine pH 8.0 (5-7) A 11/14/25 02:18 Ur Specific [place] 1.016 (1.005-1.030) 11/14/25 02:18 Urine Protein Negative (Negative) 11/14/25 02:18 Urine Glucose (UA) Negative (Normal) 11/14/25 02:18 Urine Ketones Negative (Negative) 11/14/25 02:18 Urine Blood Negative (Negative) 11/14/25 02:18 Urine Nitrate Negative (Negative) 11/14/25 02:18 Urine Bilirubin Negative (Negative) 11/14/25 02:18 Urine Urobilinogen 0.2 mg/dL (Negative) 11/14/25 02:18 Ur Leukocyte Esterase Negative (Negative) 11/14/25 02:18 Urine RBC 0-2 /hpf (0-2) 11/14/25 02:18 Urine WBC 0-5 /hpf (0-5) 11/14/25 02:18 Ur Squamous Epith Cells 0-5 /hpf (0-5) 11/14/25 02:18 Amorphous Sediment Not Reportable 11/14/25 02:18 Urine Bacteria None seen /hpf (NONE) 11/14/25 02:18 Hyaline Casts 0-4 /lpf H 11/14/25 02:18 Urine Opiates Screen Negative ng/mL (Negative) 11/14/25 02:18 Ur Barbiturates Screen Negative ng/mL (Negative) 11/14/25 02:18 Ur Phencyclidine Scrn Negative ng/mL (Negative) 11/14/25 02:18 Ur Amphetamines Screen Negative ng/mL (Negative) 11/14/25 02:18 U Benzodiazepines Scrn Negative ng/mL (Negative) 11/14/25 02:18 Urine Cocaine Screen Negative ng/mL (Negative) 11/14/25 02:18 U Marijuana (THC) Screen Negative ng/mL (Negative) 11/14/25 02:18 All radiology interpretation(s) finalized by discharge EKG Data EKG 1: Interpretation: Sinus tachycardia with a heart rate of 106, normal axis, normal intervals, no STEMI. EKG 2: Interpretation: Normal sinus rhythm with a heart rate of 91, normal axis, normal intervals, no STEMI, no ischemic change or evolution. Discharge Plan Discharge Patient Disposition: Home Clinical Impression: Anxiety Chest pain Qualifiers: Chest pain type: unspecified Qualified Code(s): R07.9 - Chest pain, unspecified High blood pressure Qualifiers: Hypertension type: unspecified Qualified Code(s): I10 - Essential (primary) hypertension Condition: Stable Prescriptions: New losartan-hydrochlorothiazide 50-12.5 mg tablet 1 tab PO DAILY Qty: 30 0RF No Action melatonin 3 mg capsule 3 mg PO .every 9PM Qty: 30 0RF Discharge Orders: Discharge ED (Routine); Ordered 11/14/25 Ordered By: Deirdre Sargent Referrals: Gil Albrecht NP [Primary Care Provider, Family Practice] Patient Instructions: Opioid Safety, Pain Management, Patient Portal & Blessing Instructions, Hypertension, Chest Pain (ED), Anxiety (ED) Activity Restrictions/Additional Instructions: Start your blood pressure medication daily as prescribed. Continue to monitor your condition closely at home. If your condition worsens or additional concerns arise, please return to the emergency department for reassessment. Otherwise, please monitor your blood pressure no more than 3 times per day. Write down your blood pressure measurements and your symptom journal and follow-up within 1 week with your primary care doctor to see if you may need further adjustment to your medication. Please see a senior restaurant manager on an outpatient basis if he continue to have chest pain. Print Language: Surinamese Coding Level of Care Code ED Air Brush Decorator for Chg Fwd Heart Score HEART Score Components History: Moderately Suspicious EKG: Normal Age: Less than 45 yrs Risk Factors: 1 or 2 Risk Factors (drug abuse) Troponin: Baseline Trop <16 ng/L HEART Score RESULT HEART Score: 2
[2025-11-14 03:11] LABS: PCP Screen Urine Negative (Negative)
== END 2025-11-14 04:43 | disposition home or self-care (01) ==
PROVIDERS: Physician Assistant; Emergency Provider Emergency Medicine; PCP Clinical Nurse Specialist Adult Health
DX: F41.9 Anxiety disorder, unspecified (principal); R07.9 Chest pain, unspecified; I10 Essential (primary) hypertension; Z87.891 Personal history of nicotine dependence
CPT/HCPCS: 36415; 71045; 80053; 80306; 81001; 83690; 83880; 84484; 85025; 85378; 93005; 99285; J9999